=== PATIENT | male | born 1975 | race Caucasian/White ===

== ENCOUNTER 2020-05-18 22:16 | Emergency (ER) | payer SELFPAY ==
[2020-05-18] MEDS ORDERED: Rocuronium Bromide 10 MG/ML (10ML VIAL) ONE (22:33)
[2020-05-18] MEDS ORDERED: Ketamine 50 MG/ML (10ML VIAL) ONE (22:33)
[2020-05-18] MEDS ORDERED: Dextrose 50% Abboject 50 ML SYRINGE ONE (22:56)
[2020-05-18 23:01] LABS: ALT (SGPT) 51 U/L (8-55); AST (SGOT) 24 U/L (5-34); Albumin 3.3 g/dL (3.5-5.0); Alkaline Phosphatase 138 U/L (40-110); Anion Gap 14 mmol/L (10-20); BUN (Urea Nitrogen) 11 mg/dL (8.9-20.6); Bilirubin, Total 0.3 mg/dL (0.2-1.2); Calc. Creatinine Clearance 0 mL/min (70-130); Calcium 8.4 mg/dL (7.8-10.44); Carbon Dioxide 29 mmol/L (22-29); Chloride 101 mmol/L (98-107); Globulin 3.7 g/dL (2.4-3.5); Potassium 3.9 mmol/L (3.5-5.1); Sodium 140 mmol/L (136-145)
[2020-05-18] MEDS ORDERED: Cefepime 2 GM VIAL ONE (23:16)
[2020-05-18] MEDS ORDERED: Vancomycin 1.5 GRAM/300 ML BAG ONE (23:16)
[2020-05-18] MEDS ORDERED: Sodium Chloride 0.9% 100 ML ONE (23:17)
[2020-05-18 23:19] LABS: Glucose 28 mg/dL (70-105)
--- NOTE | 2020-05-18 23:24 | RAD ---
RADIOGRAPH CHEST 1 VIEW: Supine DATE: 05/18/2020 11:16 PM HISTORY: 44-year-old male with dyspnea and altered mental status COMPARISON: None FINDINGS: There are no airspace densities, pulmonary edema, or cardiomegaly. The lateral costophrenic angles ar e sharp. Endotracheal tube distal tip at mid thoracic trachea. Esophageal tube distal tip in the left upper quadrant of abdomen, with side port at expected location of gastric cardia or EG junction. Supine positioning makes this study insensitive for the detection of pneumothorax. IMPRESSION: 1. No acute cardiopulmonary findings. 2. Status post intubation with endotracheal tube in mid thoracic trachea. 3. Esophagogastric tube in proximal stomach.
[2020-05-18 23:39] LABS: #Basophils 0.1 thou/uL (0.0-0.2); #Lymphocytes 0.8 thou/uL (1.20-3.40); #Monocytes 0.5 thou/uL (0.11-0.59); #Neutrophils 5.1 thou/uL (1.40-6.50); %Basophils 1.2 % (0.0-1.0); %Eosinophils 0.3 % (0.0-10.0); %Monocytes 8.3 % (0.0-10.0); %Neutrophils 78.2 % (42.0-75.0); Hemoglobin 8.7 g/dL (14.0-18.0); Mean Corpuscular HGB CONC 32.2 g/dL (32.0-36.0); Mean Corpuscular Hemoglobin 28.4 pg (27.0-31.0); Mean Corpuscular Volume 88.3 fL (78.0-98.0); Mean Platelet Volume 6.1 fL (7.4-10.4); Platelet Count 410 thou/uL (130-400); RBC Distribution Width 14.7 % (11.5-14.5); Red Blood Cell (RBC) Count 3.06 mill/uL (4.70-6.10); White Blood Cell (WBC) Count 6.5 thou/uL (4.8-10.8)
--- NOTE | 2020-05-18 23:40 | CT ---
CT BRAIN NONCONTRAST: DATE: 05/18/2020 11:30 PM HISTORY: 44-year-old male with altered mental status FINDINGS: There is no evidence of acute intra-axial or extra-axial hemorrhage. There is no midline shift or any other mass effect. There is no extra-axial fluid collection. There is no evidence of obstructive hydrocephalus. Calvarium is intact. There is a small region of encephalomalacia and gliosis involving the left paramedian anterior frontal cortex and underlying subcortical and deep white matter. IMPRESSION: 1. No acute intracranial findings. 2. 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
[2020-05-18 23:43] LABS: Acetaminophen Less than 6.0 mcg/mL (10.0-30.0); Alcohol Less than 10 mg/dL (Less than 10); Salicylate Less than 8.0 mg/dL (15.0-30.0)
[2020-05-18] MEDS ORDERED: Fentanyl 100 MCG/2 ML VIAL ONE (23:46)
[2020-05-18 23:48] LABS: Base Excess-Venous -1.5 mmol/L (-2.0 to 3.0); Bicarbonate (HCO3v) 22.7 mmol/L (22.0-28.0); CO2 Tension (PvCO2) 35.3 mmHg (40.0-50.0); Hemoglobin - Calc 8.8 g/dL (14.0-18.0); Potassium 3.4 mmol/L (3.5-5.1); vO2 Saturation-calc 99.4 % (60.0-85.0)
[2020-05-18 23:50] LABS: Calcium, Ionized 0.93 mmol/L (1.15-1.33); T. Carbon Dioxide 23.8 mmol/L (22.0-28.0)
[2020-05-18 23:55] LABS: Sodium 140 mmol/L (138-145)
[2020-05-18 23:56] LABS: Chloride 106 mmol/L (98-107)
[2020-05-19 00:03] LABS: Bilirubin Negative (Negative); Blood, Urine Moderate (Negative); Clarity Clear (Clear); Glucose, Urine (Dipstick) 100 mg/dL (Negative); Ketone, Urine Negative (Negative); Leukocyte Negative (Negative); Nitrite Negative (Negative); Protein, Urine (Dipstick) Negative (Neg-Trace); Specific Gravity, Urine 1.025 (1.005-1.030); Urobilinogen 0.2 mg/dL (Less than 2); pH, Urine 7.5 (5.0-9.0)
[2020-05-19 00:12] LABS: Cocaine Metabolite Screen Not Detected (NotDetected); Methamphetamine Detected (NotDetected); Phencyclidine (PCP) Not Detected (NotDetected); THC/Cannabinoid Screen Not Detected (NotDetected)
[2020-05-19 00:13] LABS: Amphetamine Detected (NotDetected); Barbiturates Screen Detected (NotDetected); Benzodiazepine Screen Not Detected (NotDetected); Medtox Control Line Valid? VALID (VALID); Methadone Not Detected (NotDetected); Opiate Screen Detected (NotDetected); Oxycodone Screen Not Detected (NotDetected); Tricyclic Screen Not Detected (NotDetected)
[2020-05-19 00:16] LABS: Bacteria/HPF Rare-Few HPF (None Seen); Squamous Epithelial 0-3 HPF (0-3); WBC/HPF None Seen HPF (0-3)
[2020-05-19] MEDS ORDERED: Dextrose 50% Abboject 50 ML SYRINGE ONE (00:20)
[2020-05-19 00:37] LABS: Base Excess-Venous -0.6 mmol/L (-2.0 to 3.0); Bicarbonate (HCO3v) 26.9 mmol/L (22.0-28.0); CO2 Tension (PvCO2) 58.1 mmHg (40.0-50.0); Chloride 105 mmol/L (98-107); Potassium 3.3 mmol/L (3.5-5.1); Sodium 141 mmol/L (138-145); vO2 Saturation-calc 94.2 % (60.0-85.0)
[2020-05-19 00:38] LABS: Calcium, Ionized 1.09 mmol/L (1.15-1.33); T. Carbon Dioxide 28.7 mmol/L (22.0-28.0)
== END 2020-05-19 01:15 | disposition short-term general hospital (02) ==
LOC: BURERS 22:16
DX: R41.82 Altered mental status, unspecified (principal); T68.XXXA Hypothermia, initial encounter; E10.649 Type 1 diabetes mellitus with hypoglycemia without coma; I10 Essential (primary) hypertension; F17.210 Nicotine dependence, cigarettes, uncomplicated
CPT/HCPCS: 31500; 36416; 51702; 62270; 70450; 71045; 80053; 80306; 80307; 81003; 81015; 82330; 82435; 82803; 83605; 83880; 84132; 84295; 84484; 85014; 85025; 93005; 94760; 96365; 96375; 96376; 99292; J0692; J1610; J3010; J3370; J3490

== ENCOUNTER 2020-06-11 19:50 | Emergency (ER) | payer SELFPAY ==
[2020-06-11 20:10] LABS: #Basophils 0.1 thou/uL (0.0-0.2); #Lymphocytes 1.8 thou/uL (1.20-3.40); #Monocytes 0.6 thou/uL (0.11-0.59); #Neutrophils 10.5 thou/uL (1.40-6.50); %Basophils 0.4 % (0.0-1.0); %Eosinophils 0.1 % (0.0-10.0); %Lymphocytes 13.8 % (21.0-51.0); %Monocytes 4.9 % (0.0-10.0); %Neutrophils 80.8 % (42.0-75.0); Hemoglobin 14.7 g/dL (14.0-18.0); Mean Corpuscular Hemoglobin 26.4 pg (27.0-31.0); Mean Corpuscular Volume 85.3 fL (78.0-98.0); Mean Platelet Volume 8.1 fL (7.4-10.4); Platelet Count 391 thou/uL (130-400); RBC Distribution Width 14.8 % (11.5-14.5); Red Blood Cell (RBC) Count 5.57 mill/uL (4.70-6.10)
--- NOTE | 2020-06-11 20:19 | RAD ---
PORTABLE CHEST: 06/11/20 An AP portable film at 2013 is compared with a 05/19/20 study. The heart is normal in size and the imelda ngs are clear. No infiltrate or effusion was seen. There is no congestion or edema. IMPRESSION: No acute thoracic findings. POS: HOME
[2020-06-11 20:25] LABS: ALT (SGPT) 35 U/L (8-55); AST (SGOT) 14 U/L (5-34); Albumin 4.1 g/dL (3.5-5.0); Alkaline Phosphatase 132 U/L (40-110); Anion Gap 29 mmol/L (10-20); BUN (Urea Nitrogen) 45 mg/dL (8.9-20.6); Bilirubin, Total 0.4 mg/dL (0.2-1.2); Calc. Creatinine Clearance 0 mL/min (70-130); Calcium 9.1 mg/dL (7.8-10.44); Carbon Dioxide 17 mmol/L (22-29); Chloride 98 mmol/L (98-107); Globulin 3.8 g/dL (2.4-3.5); Glucose 467 mg/dL (70-105); Lipase 11 U/L (8-78); Potassium 4.9 mmol/L (3.5-5.1); Protein, Total 7.9 g/dL (6.0-8.3); Sodium 139 mmol/L (136-145)
[2020-06-11] MEDS ORDERED: Sodium Chloride 0.9% 100 ML ONE (20:31)
[2020-06-11] MEDS ORDERED: Cefepime 2 GM VIAL ONE (20:31)
[2020-06-11] MEDS ORDERED: INSULIN REGULAR IN 0.9 % NACL 100 UNIT/100 ML BAG ONE (20:48)
[2020-06-11 21:23] LABS: Bilirubin Small (Negative); Blood, Urine Negative (Negative); Clarity Clear (Clear); Glucose, Urine (Dipstick) 500 mg/dL (Negative); Ketone, Urine 80 mg/dL (Negative); Leukocyte Negative (Negative); Nitrite Negative (Negative); Protein, Urine (Dipstick) Trace mg/dL (Neg-Trace); Urobilinogen 0.2 mg/dL (Less than 2)
== END 2020-06-11 21:20 | disposition home or self-care (01) ==
LOC: BURERS 19:50
DX: A41.9 Sepsis, unspecified organism (principal); E10.10 Type 1 diabetes mellitus with ketoacidosis without coma; L08.9 Local infection of the skin and subcutaneous tissue, unspecified; I10 Essential (primary) hypertension; F17.210 Nicotine dependence, cigarettes, uncomplicated
CPT/HCPCS: 36416; 71045; 80053; 81003; 83605; 83690; 85025; 87040; 93005; 96365; 96375; J0692; J3490

== ENCOUNTER 2020-06-19 03:58 | Emergency (ER) | payer SELFPAY ==
[2020-06-19] MEDS ORDERED: Dextrose 50% Abboject 50 ML SYRINGE ONE ×2 (04:04→05:58)
[2020-06-19] MEDS ORDERED: cefTRIAXone\\ROCEPHIN 1 GM VIAL ONE (04:51)
[2020-06-19] MEDS ORDERED: Sodium Chloride 0.9% 100 ML ONE (04:52)
[2020-06-19 05:11] LABS: #Basophils 0.1 thou/uL (0.0-0.2); #Eosinphils 0.2 thou/uL (0.0-0.7); #Monocytes 0.7 thou/uL (0.11-0.59); %Basophils 1.1 % (0.0-1.0); %Eosinophils 2.5 % (0.0-10.0); %Lymphocytes 28.1 % (21.0-51.0); %Monocytes 10.6 % (0.0-10.0); %Neutrophils 57.7 % (42.0-75.0); Mean Corpuscular HGB CONC 31.6 g/dL (32.0-36.0); Mean Corpuscular Hemoglobin 27.5 pg (27.0-31.0); Mean Corpuscular Volume 86.8 fL (78.0-98.0); Mean Platelet Volume 7.6 fL (7.4-10.4); Platelet Count 276 thou/uL (130-400); RBC Distribution Width 15.7 % (11.5-14.5); Red Blood Cell (RBC) Count 4.01 mill/uL (4.70-6.10); White Blood Cell (WBC) Count 6.9 thou/uL (4.8-10.8)
[2020-06-19 05:25] LABS: Acetaminophen Less than 6.0 mcg/mL (10.0-30.0); Alcohol Less than 10 mg/dL (Less than 10); CK (CPK) 132 U/L (30-200); Salicylate Less than 8.0 mg/dL (15.0-30.0)
[2020-06-19 05:30] LABS: Amphetamine Detected (NotDetected); Barbiturates Screen Not Detected (NotDetected); Benzodiazepine Screen Not Detected (NotDetected); Cocaine Metabolite Screen Not Detected (NotDetected); Methadone Not Detected (NotDetected); Methamphetamine Detected (NotDetected); Opiate Screen Not Detected (NotDetected); Phencyclidine (PCP) Not Detected (NotDetected); THC/Cannabinoid Screen Not Detected (NotDetected); Tricyclic Screen Not Detected (NotDetected)
[2020-06-19 05:31] LABS: Medtox Control Line Valid? VALID (VALID); Oxycodone Screen Not Detected (NotDetected)
[2020-06-19 05:32] LABS: Bilirubin Negative (Negative); Blood, Urine Trace (Negative); Clarity Clear (Clear); Glucose, Urine (Dipstick) 250 mg/dL (Negative); Ketone, Urine Negative (Negative); Leukocyte Negative (Negative); Nitrite Negative (Negative); Protein, Urine (Dipstick) Negative (Neg-Trace); Urobilinogen 0.2 mg/dL (Less than 2); pH, Urine 8.5 (5.0-9.0)
[2020-06-19 05:32] LABS: ALT (SGPT) 97 U/L (8-55); AST (SGOT) 91 U/L (5-34); Albumin 3.8 g/dL (3.5-5.0); Alkaline Phosphatase 84 U/L (40-110); Anion Gap 15 mmol/L (10-20); BUN (Urea Nitrogen) 10 mg/dL (8.9-20.6); Bilirubin, Total 0.4 mg/dL (0.2-1.2); Calc. Creatinine Clearance 0 mL/min (70-130); Calcium 8.6 mg/dL (7.8-10.44); Carbon Dioxide 24 mmol/L (22-29); Chloride 105 mmol/L (98-107); Globulin 2.7 g/dL (2.4-3.5); Glucose 78 mg/dL (70-105); Potassium 3.6 mmol/L (3.5-5.1); Protein, Total 6.5 g/dL (6.0-8.3); Sodium 140 mmol/L (136-145)
[2020-06-19 05:38] LABS: Bacteria/HPF None Seen HPF (None Seen); Squamous Epithelial 0-3 HPF (0-3); WBC/HPF None Seen HPF (0-3)
== END 2020-06-19 07:15 | disposition short-term general hospital (02) ==
LOC: BURERS 03:58
DX: E10.649 Type 1 diabetes mellitus with hypoglycemia without coma (principal); F15.10 Other stimulant abuse, uncomplicated; L08.9 Local infection of the skin and subcutaneous tissue, unspecified; I10 Essential (primary) hypertension; F17.210 Nicotine dependence, cigarettes, uncomplicated; Z79.899 Other long term (current) drug therapy
CPT/HCPCS: 36416; 51701; 70450; 71045; 80053; 80306; 80307; 81003; 81015; 82550; 83605; 84484; 85025; 87040; 87086; 93005; 94760; 96365; 96375; 96376; J0696; J3490